=== PATIENT | female | born 1995 | race Caucasian/White ===

== ENCOUNTER 2020-10-28 11:23 | Emergency (ER) | payer BC, SELFPAY ==
[2020-10-28 11:30] VITALS: BP 134/81; PULSE 98; RESP 16; TEMP 37.4; O2SAT 100
--- NOTE | 2020-10-28 11:35 | ED.URI ---
HPI - URI/Sore Throat General Chief Complaint: Upper Respiratory Infection Stated Complaint: SINUS CONGESTION Source: patient and RN notes reviewed Limitations: no limitations History of Present Illness HPI Narrative: The patient --a non-smoker/ rare drinker, with pets [dogs]-- presents with over a week long history of cough, scratchy throat and definite sinus congestion. No fever, earache; she had Covid illness last year and vaccinated, no CP, loss of taste or smell, S OB, sneezing/wheezing, sputum changes. Symptoms are mild, unrelieved with Pataday and Singulair Related Data Home Medications Medication Instructions Recorded Confirmed norethindrone-e.estradiol-iron [Lo tablet 10/28/20 Loestrin Fe] Allergies Allergy/AdvReac Type Severity Reaction Status Date / Time amoxicillin Allergy Unknown unknown Verified 10/28/20 11:30 cephalexin Allergy Unknown unknown Verified 10/28/20 11:30 Cephalosporins Allergy Unknown unknown Verified 10/28/20 11:30 Penicillins Allergy Unknown unknown Verified 10/28/20 11:30 sulfamethizole Allergy Unknown unknown Verified 10/28/20 11:30 sulfamethoxazole Allergy Unknown Unknown Verified 10/28/20 11:30 trimethoprim Allergy Unknown unknown Verified 10/28/20 11:30 POTASSIUM CLAVULANATE Allergy Unknown Unknown Uncoded 08/15/19 10:07 Review of Systems Review of Systems: Narrative: General/Constitutional: No weight loss,fever Eyes: N0: Redness,discharge Ears/Nose/Throat: No: Epistaxis,ear discharge Respiratory: Denies: Hemoptysis Gastrointestinal: No Vomiting, Bleeding-rectal Skin: No Lumps, eruption Neurologic: No Focal Weakness,Sz Hematologic: Denies: Petechiae/Purpura Psychiatric: No: Suicida ideationl All Other Systems: Reviewed and Negative PMFSH Family History Family History (Updated 07/16/16 @ 09:28 by DOCTOR UNKNOWN) Father Hypertension Social History Social History Smoking status: Never smoker Alcohol intake: never Comments At time of signature, agree with nursing past medical, surgical, social and family history. There is no relevant family history pertinent to the presenting complaint Exam Narrative: Exam Narrative: General Appearance: Well appearing, Well nourished EYE: PERRLA, Conjunctiva clear Ears: Auditory canal normal, TM normal Nose: Rhinorrhea, Mucousal erythema Mouth/Throat: MM moist, Uvula midline, Pharyngeal erythema Neck: Supple, No adenopathy Respiratory: No respiratory distress, Breath sounds equal, Clear to auscultation Cardiovascular: RRR, No JVD Musculoskeletal: Non tender, Normal strength Skin: Warm, Dry Neurological: A&O x3, CN II-XII intact Psychiatric: Normal mood, Normal affect Course Vital Signs Vital signs: Vital Signs Temperature 99.4 F 10/28/20 11:30 Pulse Rate 98 10/28/20 11:30 Respiratory Rate 16 10/28/20 11:30 Blood Pressure 134/81 10/28/20 11:30 Pulse Oximetry 100 10/28/20 11:30 Temperature 99.4 F 10/28/20 11:30 Pulse Rate 98 10/28/20 11:30 Respiratory Rate 16 10/28/20 11:30 Blood Pressure 134/81 10/28/20 11:30 Pulse Oximetry 100 10/28/20 11:30 MDM - URI/Sore Throat Lab Data Labs: Lab Results 10/28/20 Range/Units 12:06 POC SARS CoV-2 Ag Negative (Negative) Discharge Plan Discharge Clinical Impression: Upper respiratory infection Qualifiers: URI type: unspecified URI Qualified Code(s): J06.9 - Acute upper respiratory infection, unspecified Patient Disposition: Home, Self-Care Condition: Stable Instructions: Antibiotic Form, Sinusitis (ED) Additional Instructions: You may try OTC preparations especially like Flonase; continue Pataday and Singulair Decrease Lexapro by half [or every other day ], when taking this antibiotic See ENT in follow-up Prescriptions: New azithromycin 250 mg tablet See Rx Instructions .ROUTE .COMPLEX Qty: 6 RF: 0 azelastine 137 mcg (0.1 %) aerosol,spray 137 mcg NASAL Q12H Qty: 30 RF: 0
== END 2020-10-28 12:26 | disposition home or self-care (01) ==
PROVIDERS: Emergency Provider Emergency Medicine; PCP Internal Medicine
DX: J06.9 Acute upper respiratory infection, unspecified (principal); Z20.822 Contact with and (suspected) exposure to COVID-19; F41.9 Anxiety disorder, unspecified; F32.9 Major depressive disorder, single episode, unspecified
CPT/HCPCS: 87426; 99213; C9803; G0463